=== PATIENT | male | born 1960 | race Caucasian/White ===

== ENCOUNTER → 2016-04-05 | Outpatient (CLI) | payer BC ==
[2016-04-05 17:49] LABS: EKG EKG PERFORMED
[2016-04-05 18:15] LABS: Anion Gap 10 mmol/L; Carbon Dioxide 28 mmol/L (22-30); Chloride 104 mmol/L (98-107); Sodium 142 mmol/L (137-145)
[2016-04-05 18:18] LABS: Basophils % (A) 0 %; CH 30.7; CHCM 33.6; Eosinophils # (A) 0.3 k/uL (0-0.7); Eosinophils % (A) 3 %; HDW 2.49; HGB 15.3 gm/dL (13.0-17.5); Luc % (Auto) 3; Lymphocytes # (A) 1.8 k/uL (1.0-4.8); Lymphocytes % (A) 19 %; MCH 29.9 pg (25.0-35.0); MCHC 32.6 g/dL (31.0-37.0); MCV 91.7 fL (80.0-100.0); Mean Platelet Volume 6.5; Monocytes # (A) 0.8 k/uL (0-1.0); Monocytes % (A) 9 %; Neutrophils # (A) 6.1 k/uL (1.3-7.7); Neutrophils % (A) 66 %; RBC 5.13 m/uL (4.30-5.90); WBC 9.3 k/uL (3.8-10.6); WBC (Perox) 9.74
== END | disposition home or self-care (01) ==
LOC: LABPAT 17:23
PROVIDERS: ATTEND Orthopaedic Surgery
DX: Z01.810 Encounter for preprocedural cardiovascular examination (principal); Z01.812 Encounter for preprocedural laboratory examination; M23.92 Unspecified internal derangement of left knee
CPT/HCPCS: 80051; 85025; 93005

== ENCOUNTER 2016-04-21 10:09 | Day surgery (SDC) | payer BC ==
[2016-04-18 15:41] VITALS: BMI 33.5
--- NOTE | 2016-04-20 18:00 | HP ---
Gavin Reyes is a 55-year-old patient seen with progressive left knee pain. After having treatment options discussed, he elected to proceed with left knee arthroscopy. Consent was obtained. His past medical history is hypothyroidism. Past surgical history is bilateral knee arthroscopy. Daily medications: Synthroid. Allergies are none. SOCIAL HISTORY: Patient denies tobacco use. PHYSICAL EVALUATION OF THE LEFT KNEE: His range of motion is 0 to 125 degrees. There is tenderness along the medial joint line. Positive medial Mendel's. Ligaments are stable. Hip rotation is without pain. Distal neurovascular exam is intact. Radiographs of the left knee revealed mild osteoarthritis. An MRI of the left knee revealed medial meniscal tear. IMPRESSION: Internal derangement left knee with medial meniscal tear. PLAN: Left knee arthroscopy with partial meniscectomy and debridement.
[~2016-04-21 10:09] MED LIST: DEXAMETHASONE SOD PHOSPHATE 10 MG/ML 1 ML VIAL IV ONE; HYDROmorphone 1 MG/ML 1 ML SYRINGE IVP PRN; MIDAZOLAM 2 MG/2 ML VIAL IV PRN; ONDANSETRON 4 MG/2 ML VIAL IVP ONE; ceFAZolin 2 GM in SODIUM CHLORIDE 0.9% 100 ML IVPB ONE
[2016-04-21] MEDS ORDERED: LIDOCAINE 1% 20 ML VIAL (10MG/ML) FOR IV START INTRADERMA ONE (10:30)
[2016-04-21] MEDS: LACTATED RINGERS 1,000 ML IV SCH ×2 (10:33→11:55)
[2016-04-21] MEDS ORDERED: NEOSTIGMINE 1 MG/ML 10 ML VIAL ONE (11:56)
[2016-04-21] MEDS ORDERED: GLYCOPYRROLATE 0.2 MG/ML 2 ML VIAL ONE (11:56)
[2016-04-21] MEDS ORDERED: fentaNYL (PF) 50 MCG/ML 2 ML AMP ONE (11:56)
[2016-04-21] MEDS ORDERED: ROCURONIUM BROMIDE 10 MG/ML 10 ML VIAL IV ONE (11:56)
[2016-04-21] MEDS ORDERED: ONDANSETRON 4 MG/2 ML VIAL ONE (11:56)
[2016-04-21] MEDS ORDERED: PROPOFOL 10 MG/ML 20 ML VIAL IV ONE (11:56)
[2016-04-21] MEDS ORDERED: SUCCINYLCHOLINE CHLORIDE VIAL 200 MG/10 ML VIAL IV ONE (11:56)
[2016-04-21] MEDS ORDERED: MIDAZOLAM 2 MG/2 ML VIAL ONE (11:56)
[2016-04-21] MEDS ORDERED: LIDOCAINE 1% INJ 10MG/ML (20 ML MDV) ONE (11:56)
[2016-04-21] MEDS ORDERED: BUPIVACAIN-EPI 0.25%-1:200,000 30 ML VIAL INTRAARTIC ONE ×2 (12:16→12:34)
--- NOTE | 2016-04-21 12:50 | P.OP ---
Date of Procedure: 04/21/16 Preoperative Diagnosis: Internal derangement left knee Postoperative Diagnosis: 1. Tear medial meniscus left knee 2. Grade 2/3 chondromalacia medial femoral condyle 3. Grade 2/3 chondromalacia patella left knee 4. Grade 2 chondromalacia lateral femoral condyle left knee 5. Reactive synovitis medial and suprapatellar compartments left knee Procedure(s) Performed: 1. Arthroscopic partial medial meniscectomy left knee 2. Arthroscopic chondroplasty medial femoral condyle left knee 3. Arthroscopic chondroplasty patella left knee 4. Arthroscopic partial synovectomy medial and suprapatellar compartments left knee Anesthesia: GETA Surgeon: Darío Fernandez Estimated Blood Loss (ml): 10 Pathology: none sent Condition: stable Disposition: PACU Indications for Procedure: 55-year-old patient seen with progressive left knee pain. After having options regarding treatment discussed, he elected to proceed with left knee arthroscopy. Operative Findings: See description of procedure Description of Procedure: Patient was taken to the operative suite. Patient underwent a general anesthetic by the department of anesthesia. Patient was given preoperative antibiotics. The left lower extremity was placed in a well-padded arthroscopic leg lee. The left leg was prepped and draped in the normal sterile orthopedic fashion. A lateral parapatellar and suprapatellar incision was made. Trochars were inserted. Arthroscopy was initiated. Suprapatellar pouch revealed thick reactive synovitis. The patellofemoral joint appeared to articulate congruently. There was grade 2/3 chondromalacia of the patella with some osteochondral tears present. The scope was guided into the medial gutter. No loose bodies or plica were identified. The scope was then guided into the medial compartment. A medial parapatellar incision was made. Trocar inserted followed by probe. There was a tear involving the posterior horn of the medial meniscus. There were grade 2-3 chondromalacia changes the medial femoral condyle with some osteochondral tears present. Thick reactive synovitis was noted anteriorly. A partial medial meniscectomy was performed on a stable tissue. I performed a chondroplasty of the medial femoral condyle down to stable tissue as well as a partial synovectomy. The residual meniscus was probed and found to be stable. Scope and probe were then guided into the intercondylar notch. Cruciates were identified, probed and found to be stable. The scope and probe were then guided into lateral compartment. There was grade 2 chondral malacia changes noted weightbearing surface lateral femoral condyle with no osteochondral tear present. The lateral meniscus was stable. There was no significant synovitis and there were no loose bodies. The scope was in guided back into the suprapatellar compartment. A motorized shaver was now introduced into the suprapatellar compartment. I debrided some piecemeal fragments of meniscus. I performed a chondroplasty of the patella down to stable tissue. I performed a partial synovectomy. The residual osteochondral surface was not probed and found to be stable. I took one more look around the entire knee, no residual debris. Instruments were now removed from the joint. The joint was infiltrated with .25% Marcaine. Steri-Strips were applied to the portal sites. Sterile dressings were applied. The patient was placed into a ALLI hose. No tourniquet was utilized. The patient was awakened, transferred to a bed and taken to recovery stable satisfactory condition.
[2016-04-21 12:52] VITALS: RESP 16; TEMP 97.1
[2016-04-21] MEDS ORDERED: METOCLOPRAMIDE 5 MG/ML 2 ML VIAL IVP ONE (13:00)
[2016-04-21] MEDS ORDERED: KETOROLAC 30 MG/ML 1 ML VIAL IVP ONE (13:07)
[2016-04-21] MEDS ORDERED: LACTATED RINGERS 1,000 ML IV ONE (13:31)
[2016-04-21] MEDS ORDERED: HYDROcodone/APAP 7.5-325MG 1 EACH TAB PO ONE (14:12)
[2016-04-21 14:13] VITALS: BP 108/72; PULSE 72
== END 2016-04-21 14:57 | disposition home or self-care (01) ==
LOC: OR 10:09
PROVIDERS: ATTEND Orthopaedic Surgery
DX: S83.242A Other tear of medial meniscus, current injury, left knee, initial encounter (principal); X58.XXXA Exposure to other specified factors, initial encounter; M22.42 Chondromalacia patellae, left knee; M94.262 Chondromalacia, left knee; M65.862 Other synovitis and tenosynovitis, left lower leg; E03.9 Hypothyroidism, unspecified; Z79.899 Other long term (current) drug therapy
CPT/HCPCS: 29881; J2250; J0330; J1100; J2710; J2765; J0690; J2405; J2001; J3010; J1885; J1170; J2704

== ENCOUNTER → 2021-03-25 | Outpatient (CLI) | payer BC ==
--- NOTE | 2021-03-25 15:51 | MR ---
EXAMINATION TYPE: MR knee LT wo con DATE OF EXAM: 03/25/2021 COMPARISON: MRI 03/19/2016 and outside radiographs 02/23/2021 HISTORY: 60-year-old male M25.562, Left inner and outer knee pain, pain behind knee, and knee locking for 1 year. History of left knee surgery TECHNIQUE: Multiplanar, multisequence imaging of the left knee is performed without IV contrast. FINDINGS: The ACL, PCL, MCL, LCL complex appear intact. Mild superficial irregularity of mid weightbearing articular cartilage in the medial compartment. There is new inner margin truncation of the body of the medial meniscus. Intermediate, obliquely orie nted signal extends within the posterior horn of the medial meniscus to the junction with the menisca l body at the site of previous tear noted in 2016. This could represent granulation tissue within a p revious tear defect. However, we do note a small but elongated 1.3 x 0.4 cm posterior para meniscal c yst, coronal image 28 and sagittal image 27. Focal 4 mm moderate thickness chondral defect along the posterior weightbearing aspect of the lateral tibial plateau is unchanged from prior. Lateral meniscus is intact. Superficial cartilage fraying along both medial and lateral patellar facets. Mild thinning of the art icular cartilage here compared to prior exam. Extensive metal susceptibility artifact along the anterior aspect of the knee. The technologist repor ts that the patient has some type of nonremovable pain along the anterior skin surface causing these artifacts. Thickening and intermediate signal of the proximal patellar tendon is unchanged suggesting proximal patellar tendinosis. Extensor mechanism otherwise appears intact. Small, physiologic joint effusion. Trace fluid in the deep infrapatellar bursa. There is a small, mil dly complex Marks's cyst measuring 4.4 x 1.6 cm, increased from prior and now containing a much large r loose body measuring 1.4 x 0.9 cm versus 1.1 x 0.5 cm, previously. Normal popliteal artery anatomy and muscle bulk. No suspicious bone marrow replacement. IMPRESSION: 1. New inner margin truncation to the body of the medial meniscus, likely interval partial meniscecto my. Clinically correlate. The previous posterior horn tear now shows intermediate signal intensity an d could represent healing granulation tissue. Recurrent tear difficult to exclude given the presence of a 1.3 x 0.4 cm posterior parameniscal cyst. 2. Similar 4 mm moderate thickness chondral defect along the posterior weightbearing aspect of the la teral tibial plateau. 3. Mild thinning of patellar articular cartilage slightly progressed from prior with similar superfic ial cartilage fissuring. 4. Continued proximal patellar tendinosis. 5. Small joint effusion and a small Marks's cyst measuring 4.4 cm and containing a 1.4 cm loose body.
== END | disposition home or self-care (01) ==
LOC: RADMRIMAIN 12:55
PROVIDERS: ATTEND Orthopaedic Surgery
DX: M71.22 Synovial cyst of popliteal space [Baker], left knee (principal); M23.42 Loose body in knee, left knee; M25.462 Effusion, left knee; M23.204 Derangement of unspecified medial meniscus due to old tear or injury, left knee

== ENCOUNTER → 2021-06-04 | Outpatient (CLI) | payer BC ==
[2021-06-04 18:17] LABS: Basophils # (A) 0.06 X 10*3/uL (0.00-0.10); Basophils % (A) 0.7 %; Eosinophils # (A) 0.28 X 10*3/uL (0.04-0.35); Eosinophils % (A) 3.1 %; HCT 47.4 % (39.6-50.0); HGB 15.7 g/dL (13.0-17.0); Immature Grans, Automated 0.2 %; Lymphocytes # (A) 2.69 X 10*3/uL (0.90-5.00); Lymphocytes % (A) 29.7 %; MCH 30.1 pg (27.0-32.0); MCHC 33.1 g/dL (32.0-37.0); MCV 90.8 fL (80.0-97.0); Mean Platelet Volume 10.1 fL (9.5-12.2); Monocytes # (A) 0.88 X 10*3/uL (0.20-1.00); Monocytes % (A) 9.7 %; NRBC Per 100 WBC 0 /100 WBCS (0.0-0.0); Neutrophils # (A) 5.12 X 10*3/uL (1.80-7.70); Neutrophils % (A) 56.6 %; Platelet Count 393 X 10*3/uL (140-440); RBC 5.22 X 10*6/uL (4.40-5.60); RDW 13.4 % (11.5-14.5); WBC 9.05 X 10*3/uL (4.50-10.00)
[2021-06-04 18:34] LABS: Anion Gap 12.1 mmol/L (10.00-18.00); Carbon Dioxide 22.9 mmol/L (20.0-27.5); Potassium 4.6 mmol/L (3.5-5.5)
== END | disposition home or self-care (01) ==
LOC: LABPAT 13:48
PROVIDERS: ATTEND Orthopaedic Surgery
DX: Z01.812 Encounter for preprocedural laboratory examination (principal); M23.92 Unspecified internal derangement of left knee
CPT/HCPCS: 36415; 80051; 85025

== ENCOUNTER 2021-06-10 09:21 | Day surgery (SDC) | payer BC ==
[2021-06-07 12:52] VITALS: BMI 36.9
--- NOTE | 2021-06-09 20:11 | HP ---
HISTORY AND PHYSICAL DATE OF SURGERY: 06/10/2021 Gavin Alejandra is a 60-year-old gentleman seen with progressive left knee pain. Options for treatment were discussed. He elected to proceed with left knee arthroscopy. Consent was obtained. PAST MEDICAL HISTORY: Hypothyroidism. PAST SURGICAL HISTORY: Right knee arthroscopy. DAILY MEDICATIONS: Synthroid. ALLERGIES: NONE. SOCIAL HISTORY: He denies tobacco use. PHYSICAL EVALUATION OF THE LEFT KNEE: Range of motion zero to 130 degrees. Mild effusion. Tenderness, medial joint line. Positive medial Mendel's. Ligaments stable. Hip rotation without pain. Distal neurovascular exam intact. Radiographs of the left knee revealed moderate medial compartment osteoarthritic changes. MRI left knee revealed a medial meniscal tear along with a perimeniscal cyst, Mraks cyst and loose body. IMPRESSION: 1. Internal derangement of left knee with medial meniscal tear and loose body. 2. Hypothyroidism. PLAN: Left knee arthroscopy with partial meniscectomy, removal of loose body and debridement. MMODL / IJN: [id number] /
[~2021-06-10 09:21] MED LIST changes: -DEXAMETHASONE SOD PHOSPHATE 10 MG/ML 1 ML VIAL IV ONE; +DEXAMETHASONE SOD PHOSPHATE 4 MG/ML 1 ML VIAL IV ONE; +HYDROmorphone 0.5 MG/0.5 ML SYRINGE IVP PRN; -HYDROmorphone 1 MG/ML 1 ML SYRINGE IVP PRN; +LIDOCAINE 1% (10MG/ML) FOR IV START INTRADERMA PRN; -ceFAZolin 2 GM in SODIUM CHLORIDE 0.9% 100 ML IVPB ONE; +ceFAZolin 3 GM in SODIUM CHLORIDE 0.9% 100 ML IVPB PRN; +fentaNYL (PF) 50 MCG/ML 2 ML AMP IV PRN
[2021-06-10] MEDS: LACTATED RINGERS 1,000 ML IV SCH ×2 (09:43→11:12)
[2021-06-10] MEDS ORDERED: HYDROmorphone (PF) 1 MG/ML ONE (11:08)
[2021-06-10] MEDS ORDERED: MIDAZOLAM 2 MG/2 ML VIAL ONE (11:08)
[2021-06-10] MEDS ORDERED: SUCCINYLCHOLINE CHLORIDE 100 MG/5 ML SYR IV ONE (11:08)
[2021-06-10] MEDS ORDERED: fentaNYL (PF) 50 MCG/ML 2 ML AMP ONE (11:08)
[2021-06-10] MEDS ORDERED: PROPOFOL 10 MG/ML 20 ML VIAL IV ONE (11:08)
[2021-06-10] MEDS ORDERED: LIDOCAINE 1% INJ 10MG/ML (20 ML MDV) ONE (11:08)
[2021-06-10] MEDS ORDERED: BUPIVACAINE (PF) 0.25% 30 ML VIAL SQ ONE (11:32)
[2021-06-10] MEDS ORDERED: LACTATED RINGERS 1,000 ML IV ONE (11:40)
--- NOTE | 2021-06-10 12:01 | P.OP ---
Date of Procedure: 06/10/21 Preoperative Diagnosis: Internal derangement left knee Postoperative Diagnosis: 1. Tear medial meniscus left knee 2. Reactive synovitis medial, lateral and suprapatellar compartments left knee Procedure(s) Performed: 1. Arthroscopic partial medial meniscectomy left knee 2. Arthroscopic partial synovectomy medial, lateral and suprapatellar compartments left knee Anesthesia: KAMERON, local Surgeon: Darío Fernandez Estimated Blood Loss (ml): 7 Pathology: none sent Condition: stable Disposition: PACU Indications for Procedure: 60-year-old patient seen with progressive left knee pain. After treatment options were discussed, he elected to proceed with arthroscopy. Operative Findings: see description of procedure Description of Procedure: Patient was taken to the operative suite. Patient underwent a general anestheti c by the department of anesthesia. Patient was given preoperative antibiotics. The left lower extremity was placed in a well-padded arthroscopic leg lee. The left leg was prepped and draped in the normal sterile orthopedic fashion. A lateral parapatellar and suprapatellar incision was made. Trochars were inserted. Arthroscopy was initiated. Suprapatellar pouch revealed diffuse thick reactive synovitis. The patellofemoral joint appeared to articulate congruently. There was grade 1/2 chondromalacia with no significant osteochondral tears present. The scope was guided into the medial gutter. No loose bodies or plica were identified. The scope was then guided into the medial compartment. A medial parapatellar incision was made. Trocar inserted followed by probe. There was a complex tear posterior horn medial meniscus. There was evidence of previous partial meniscectomy. The anterior horn was stable. There were grade 2 chondromalacia changes diffusely about the medial femoral condyle without significant osteochondral tearing noted. There was some thick reactive synovitis anteriorly. I performed a partial medial meniscectomy getting down to stable meniscal tissue. I performed a partial synovectomy decompressing the reactive synovitis anteriorly. The residual meniscus was probed and found to be stable. There was good decompression of synovitis. Scope and probe were then guided into the intercondylar notch. Cruciates were identified, probed and found to be stable. The scope and probe were then guided into lateral compartment. Lateral meniscus was probed and was found to be stable. There was no significant chondromalacia present in the lateral compartment. There was some thick reactive synovitis anteriorly involving the lateral compartment. I introduced a motorized shaver and I performed a partial synovectomy decompressing the reactive synovitis. Shaver was removed. There was good decompression of synovitis. The scope was in guided back into the suprapatellar compartment. I introduced a motorized shaver into the suprapatellar compartment. I debrided some piecemeal fragments of meniscus that I encountered. I performed a partial synovectomy. Shaver was now removed. There appeared to be good decompression of the synovitis. I now took one more look around the entire, no residual debris. Instruments were now removed from the joint. The joint was infiltrated with .25% Marcaine. Steri-Strips were applied to the portal sites. Sterile dressings were applied. The patient was placed into a ALLI hose. No tourniquet was utilized. The patient was awakened, transferred to a bed and taken to recovery stable satisfactory condition.
[2021-06-10 12:17] VITALS: TEMP 96.9
[2021-06-10] MEDS ORDERED: KETOROLAC 15 MG/ML 1 ML VIAL IVP ONE (12:42)
[2021-06-10 13:23] VITALS: RESP 20
[2021-06-10 14:25] VITALS: BP 128/70; PULSE 80
== END 2021-06-10 14:37 | disposition home or self-care (01) ==
LOC: OR 09:21
PROVIDERS: ATTEND Orthopaedic Surgery
DX: M23.204 Derangement of unspecified medial meniscus due to old tear or injury, left knee (principal); M65.862 Other synovitis and tenosynovitis, left lower leg; E03.9 Hypothyroidism, unspecified; Z79.890 Hormone replacement therapy; G43.909 Migraine, unspecified, not intractable, without status migrainosus; K21.9 Gastro-esophageal reflux disease without esophagitis; Z79.899 Other long term (current) drug therapy
CPT/HCPCS: 29881; 29876; J2250; J1100; J0690; J2405; J2001; J3010; J1170 ×2; J1885; J0330; J2704

== ENCOUNTER → 2022-03-23 | Outpatient (CLI) | payer BC ==
--- NOTE | 2022-03-24 04:55 | MR ---
EXAMINATION TYPE: MR knee RT wo con DATE OF EXAM: 03/23/2022 COMPARISON: Prior MRI right knee September 18, 2013 HISTORY: Right knee pain and swelling x 6 mos, no trauma. History of prior surgery. TECHNIQUE: Multiplanar, multisequence images of the knee is performed without IV contrast. FINDINGS: MEDIAL MENISCUS: Truncated appearance to posterior horn consistent with interval partial meniscectomy changes. Some fraying and increased signal in the remnant horn is present. LATERAL MENISCUS: Increase horizontal signal anterior horn lateral meniscus does not extend to articu lar surface seen best on coronal images. CRUCIATE LIGAMENTS: The anterior and posterior cruciate ligaments are intact and unremarkable. COLLATERAL LIGAMENTS: The medial collateral ligament and lateral collateral ligament complex are inta ct and unremarkable. EXTENSOR MECHANISM: Visualized quadriceps and patellar tendons are intact. Disruption of Hoffa's fat pad consistent with prior laparoscopic surgery. EFFUSION: No significant suprapatellar joint effusion. POPLITEAL CYST: Stable small size popliteal/barry cyst. TRICOMPARTMENT SPACES: Mild to moderate tricompartment joint space loss without significant spurring redemonstrated. CARTILAGE: Tricompartment joint space loss fairly mild but becoming more moderate in the medial tibio femoral compartment. BONE MARROW SIGNAL: No focal abnormal marrow signal is appreciated. OTHER: No additional significant abnormality is appreciated. IMPRESSION: 1. Interval surgery, some recurrent tearing of the remnant posterior horn medial meniscus is suspecte d. Suspect new intrasubstance tear anterior horn lateral meniscus. No full thickness tear at this lev el clearly seen. 2. Tricompartment degenerative changes as detailed above presumed on the basis of osteoarthritis. Ashvin e interval worsening from 2014 MRI noted.
== END ==
LOC: RADMRIMAIN 19:15
PROVIDERS: ATTEND Orthopaedic Surgery
DX: M17.11 Unilateral primary osteoarthritis, right knee (principal)

== ENCOUNTER → 2022-06-13 | Outpatient (CLI) | payer BC ==
[2022-06-13 22:25] LABS: Basophils # (A) 0.05 X 10*3/uL (0.00-0.10); Basophils % (A) 0.5 %; Eosinophils # (A) 0.17 X 10*3/uL (0.04-0.35); Eosinophils % (A) 1.8 %; HCT 48.2 % (39.6-50.0); HGB 15.6 g/dL (13.0-17.0); Immature Grans, Automated 0.3 %; Lymphocytes # (A) 2.25 X 10*3/uL (0.90-5.00); Lymphocytes % (A) 23.5 %; MCH 29.7 pg (27.0-32.0); MCHC 32.4 g/dL (32.0-37.0); MCV 91.8 fL (80.0-97.0); Mean Platelet Volume 9.8 fL (9.5-12.2); Monocytes # (A) 0.79 X 10*3/uL (0.20-1.00); Monocytes % (A) 8.3 %; NRBC Per 100 WBC 0 /100 WBCS (0.0-0.0); Neutrophils # (A) 6.27 X 10*3/uL (1.80-7.70); Neutrophils % (A) 65.6 %; Platelet Count 366 X 10*3/uL (140-440); RBC 5.25 X 10*6/uL (4.40-5.60); RDW 13.7 % (11.5-14.5); WBC 9.56 X 10*3/uL (4.50-10.00)
[2022-06-13 22:48] LABS: Anion Gap 12.6 mmol/L (10.00-18.00); Carbon Dioxide 25.4 mmol/L (20.0-27.5); Potassium 4.3 mmol/L (3.5-5.5)
== END | disposition home or self-care (01) ==
LOC: LABPAT 14:04
PROVIDERS: ATTEND Orthopaedic Surgery
DX: Z01.818 Encounter for other preprocedural examination (principal); I45.10 Unspecified right bundle-branch block; I23.2 Ventricular septal defect as current complication following acute myocardial infarction; M23.91 Unspecified internal derangement of right knee; R94.31 Abnormal electrocardiogram [ECG] [EKG]
CPT/HCPCS: 80051; 85025; 93005

== ENCOUNTER 2022-06-16 11:33 | Day surgery (SDC) | payer BC ==
--- NOTE | 2022-06-15 23:05 | HP ---
HISTORY AND PHYSICAL DATE OF SURGERY: 06/16/2022 HISTORY OF PRESENT ILLNESS: Gavin Reyes is a 61-year-old gentleman seen with progressive right knee pain. We discussed options for treatment. He elected to proceed with right knee arthroscopy. Consent regarding the procedure was obtained. PAST MEDICAL HISTORY: Hypothyroidism. PAST SURGICAL HISTORY: Knee arthroscopy. DAILY MEDICATION: Synthroid. ALLERGIES: None. SOCIAL HISTORY: Denies tobacco use. PHYSICAL EVALUATION OF RIGHT KNEE: Range of motion 0 to 130 degrees. Mild effusion. Tenderness to medial joint line. Positive medial Mendel's. Ligaments stable. Hip rotation without pain. Distal neurovascular exam is intact. RADIOGRAPHS: Right knee radiographs reveals some moderate osteoarthritic changes. MRI right knee revealed medial and lateral meniscal tears. IMPRESSION: 1. Internal derangement of right knee with medial and lateral meniscal tears. 2. Hypothyroidism. PLAN: Right knee arthroscopy with partial medial/lateral meniscectomy and debridement. MMODL / CONCEPCIONN: [id number] /
[~2022-06-16 11:33] MED LIST changes: -HYDROmorphone 0.5 MG/0.5 ML SYRINGE IVP PRN; +LACTATED RINGERS 1,000 ML IV SCH; -MIDAZOLAM 2 MG/2 ML VIAL IV PRN; -ceFAZolin 3 GM in SODIUM CHLORIDE 0.9% 100 ML IVPB PRN; -fentaNYL (PF) 50 MCG/ML 2 ML AMP IV PRN
[2022-06-16] MEDS ORDERED: LACTATED RINGERS 1,000 ML IV ONE ×2 (12:04)
[2022-06-16] MEDS ORDERED: PROPOFOL 10 MG/ML 20 ML VIAL IV ONE (13:53)
[2022-06-16] MEDS ORDERED: LIDOCAINE 2% INJ 20 MG/ML (2 ML VIAL) ONE (13:53)
[2022-06-16] MEDS ORDERED: fentaNYL (PF) 50 MCG/ML 2 ML AMP ONE (13:53)
[2022-06-16] MEDS ORDERED: MIDAZOLAM 2 MG/2 ML VIAL ONE (13:53)
[2022-06-16] MEDS ORDERED: BUPIVACAINE (PF) 0.25% 30 ML VIAL SQ ONE ×2 (13:57→14:25)
[2022-06-16 14:37] VITALS: TEMP 97
--- NOTE | 2022-06-16 14:40 | P.OP ---
Date of Procedure: 06/16/22 Preoperative Diagnosis: Internal derangement right knee Postoperative Diagnosis: 1. Tear medial and lateral meniscus right knee 2. Grade 2 chondromalacia medial femoral condyle right knee 3. Grade 2 chondromalacia patella right knee 4. Reactive synovitis medial, lateral and suprapatellar compartments right knee Procedure(s) Performed: 1. Arthroscopic partial medial and lateral meniscectomy right knee 2. Arthroscopic chondroplasty medial femoral condyle right knee 3. Arthroscopic chondroplasty patella right knee 4. Arthroscopic partial synovectomy medial, lateral and suprapatellar compartments right knee Anesthesia: IVANA, local Surgeon: Darío Fernandez Estimated Blood Loss (ml): 7 Pathology: none sent Condition: stable Disposition: PACU Indications for Procedure: 61-year-old gentleman seen with progressive right knee pain. After treatment options discussed, he elected to proceed with arthroscopy. Operative Findings: see description of procedure Description of Procedure: Patient was taken to the operative suite. Patient underwent a general anesthetic by the department of anesthesia. Patient was given preoperative antibiotics. The right lower extremity was placed in a well-padded arthroscopic leg lee. The right leg was prepped and draped in the normal sterile orthopedic fashion. A lateral parapatellar and suprapatellar incision was made. Trochars were inserted. Arthroscopy was initiated. Suprapatellar pouch revealed diffuse thick reactive synovitis. The patellofemoral joint appeared articulate congruently. There was grade 2 chondromalacia of the patella with some osteochondral flap tears present. The scope was guided into the medial gutter. No loose bodies or plica were identified The scope was then guided into the medial compartment. A medial parapatellar incision was made. Trocar inserted followed by probe. There was a complex tear posterior horn medial meniscus. There were grade 2 chondromalacia changes of the medial femoral condyle with some osteochondral flap tears present. There was some thick reactive synovitis anteriorly. I performed a partial medial meniscectomy getting down to stable meniscal tissue. I performed a chondroplasty of the medial femoral condyle getting down to stable osteochondral tissue. I performed a partial synovectomy decompressing the reactive synovitis. The residual meniscus was probed and was found to be stable. There was good decompression of the synovitis. The residual osteochondral surface of the medial femoral condyle was stable. Scope and probe were then guided into the intercondylar notch. Cruciates were identified, probed and found to be stable. The scope and probe were then guided into lateral compartment. There was a radial tear involving the anterior horn and midbody's of the lateral meniscus. There was some thick reactive synovitis anteriorly. There was no significant chondromalacia present. I performed a partial lateral meniscectomy getting down to stable meniscal tissue. I performed a partial synovectomy decompressing reactive synovitis. The residual meniscus was stable. There was good decompression of the synovitis. The scope was in guided back into the suprapatellar compartment. I introduced a motorized shaver into the suprapatellar compartment. I debrided some piecemeal fragments of meniscus that I encountered. I performed a partial synovectomy. Shaver was now removed. There was good decompression of the synovitis. I took one more look around the entire knee, no residual debris. Instruments were now removed from the joint. The joint was infiltrated with .25% Marcaine. Steri-Strips were applied to the portal sites. Sterile dressings were applied. The patient was placed into a ALLI hose. No tourniquet was utilized. The patient was awakened, transferred to a bed and taken to recovery stable satisfactory condition.
[2022-06-16] MEDS: HYDROmorphone 0.5 MG/0.5 ML SYRINGE IVP PRN ×2 (15:00→15:13)
[2022-06-16 15:20] VITALS: RESP 16
[2022-06-16] MEDS ORDERED: HYDROcodone/APAP 5-325MG 1 EACH TAB ONE (15:47)
[2022-06-16 15:53] VITALS: PULSE 82
[2022-06-16 16:07] VITALS: BP 119/79
== END 2022-06-16 16:36 | disposition home or self-care (01) ==
LOC: OR 11:33
PROVIDERS: ATTEND Orthopaedic Surgery
DX: S83.231A Complex tear of medial meniscus, current injury, right knee, initial encounter (principal); S83.281A Other tear of lateral meniscus, current injury, right knee, initial encounter; X58.XXXA Exposure to other specified factors, initial encounter; M17.11 Unilateral primary osteoarthritis, right knee; M65.861 Other synovitis and tenosynovitis, right lower leg; Z79.890 Hormone replacement therapy; M94.261 Chondromalacia, right knee; E03.9 Hypothyroidism, unspecified; G47.33 Obstructive sleep apnea (adult) (pediatric); Z99.89 Dependence on other enabling machines and devices; G43.909 Migraine, unspecified, not intractable, without status migrainosus; H93.19 Tinnitus, unspecified ear; Z79.899 Other long term (current) drug therapy; Z98.890 Other specified postprocedural states
CPT/HCPCS: 29880; J2250; J0690; J2405; J3010; J2704; J1170; J2001

== ENCOUNTER → 2024-05-27 | Outpatient (CLI) | payer BC ==
--- NOTE | 2024-05-27 14:29 | MR ---
EXAMINATION TYPE: MR lumbar spine wo con DATE OF EXAM: 05/27/2024 COMPARISON: Lumbar spine x-ray May 20, 2024 HISTORY: Low back pain into rt leg TECHNIQUE: Multiplanar, multisequence imaging of the lumbar spine is performed without IV contrast. FINDINGS: Sagittal images of the lumbar spine show vertebral body heights to appear satisfactory. Sub tle grade 1 retrolisthesis L5 on S1. There is disc desiccation without significant disc space narrowi ng at L2-L3 level. There is disc desiccation with moderate disc space narrowing and vacuum disc pheno mazin and Modic type II endplate changes at the L5-S1 level. The conus medullaris is normal in posit ion and signal ending mid L1 level. Osseous hemangioma at L5 level is seen sagittal image 12. Axial images show and T12-L1 and L1-L2 levels to appear within normal limits. Axial images at L2-L3 level show mild broad disc bulge minimally effacing the anterior thecal sac. Axial images at L3-L4 and L4-L5 levels show mild facet arthropathy bilaterally. Spinal canal is prese rved. Bilateral neural foramina are patent. Axial images at L5-S1 level shows spondylolisthesis with mild to moderate broad disc bulge and mild f acet arthropathy bilaterally. Spinal canal is preserved. There is mild to moderate left greater than right bilateral neuroforaminal narrowing seen. Paraspinal muscle bulk is maintained. IMPRESSION: Multilevel degenerative change greatest at the lumbosacral junction as detailed above. No suspicious eccentric disc herniation is seen to account for patient's right-sided radiculopathy type symptoms however. [facility], , 05/27/2024 2:26 PM
== END | disposition home or self-care (01) ==
LOC: RADMRIMAIN 12:54
PROVIDERS: ATTEND Orthopaedic Surgery
DX: M47.26 Other spondylosis with radiculopathy, lumbar region (principal); M43.16 Spondylolisthesis, lumbar region; M51.16 Intervertebral disc disorders with radiculopathy, lumbar region; M62.81 Muscle weakness (generalized)
CPT/HCPCS: 72148

== ENCOUNTER → 2024-06-17 | Outpatient (CLI) | payer BC ==
--- NOTE | 2024-06-17 14:31 | CT ---
EXAMINATION TYPE: CT pelvis wo/w con CT DLP: 2663.9 mGycm, Automated exposure control for dose reduction was used. DATE OF EXAM: 06/17/2024 2:13 PM COMPARISON: MRI lumbar spine 05/27/2024 CLINICAL INDICATION:Male, 63 years old with history of RECTAL PAIN K62.89; rectal pain TECHNIQUE: Standard CT of the pelvis before and after the uneventful administration of 100 mL Isovu e 300 intravenously. Enteric contrast was administered. Coronal and sagittal reformats were performed . FINDINGS: BLADDER: Underdistended urinary bladder with circumferential wall thickening measuring up to 1 cm. No surrounding fat stranding. The visualized bilateral distal ureters appear unremarkable and are contr ast-filled and delayed phase. The urinary bladder demonstrates internal contrast on delayed phase. REPRODUCTIVE: Prostate is enlarged in size measuring 5.6 cm in transverse dimension. BOWEL: Enteric contrast reaches the rectum. No focal bowel wall thickening or surrounding inflammator y changes. Distal colonic diverticulosis without evidence for acute diverticulitis. The appendix is u nremarkable. No evidence of bowel obstruction. PERITONEUM: No evidence of pneumoperitoneum or free fluid. VASCULATURE: No visualized aneurysm. Couple pelvic phleboliths. MUSCULOSKELETAL: No acute osseous abnormalities. Mild degenerative changes of bilateral SI joints. Mu ltilevel degenerative disc disease of the visualized lower lumbar spine. LYMPH NODES: No evidence for lymphadenopathy. SOFT TISSUE/ABDOMINAL WALL: Small fat filled umbilical hernia. Patulous fat filled left inguinal ring . No perirectal or perianal organized fluid collection or inflammatory changes. IMPRESSION: 1. Circumferential wall thickening of the underdistended urinary bladder without surrounding inflamm atory changes. This may relate to under distention versus cystitis. Correlate with urinalysis. 2. Colonic diverticulosis without evidence for acute diverticulitis. 3. Prostatomegaly. [facility], , 06/17/2024 2:29 PM
== END | disposition home or self-care (01) ==
LOC: RADCTMAIN 11:50
PROVIDERS: ATTEND Family Medicine
DX: K62.89 Other specified diseases of anus and rectum (principal); K57.30 Diverticulosis of large intestine without perforation or abscess without bleeding; N40.0 Benign prostatic hyperplasia without lower urinary tract symptoms; N32.89 Other specified disorders of bladder
CPT/HCPCS: 72194; Q9967

== ENCOUNTER → 2024-09-16 | Outpatient (CLI) | payer BC ==
--- NOTE | 2024-09-18 14:40 | MR ---
EXAMINATION TYPE: MR shoulder RT wo con DATE OF EXAM: 09/16/2024 10:55 AM COMPARISON: None. CLINICAL INDICATION: Male, 63 years old with history of M25.511 right shoulder pain, Right shoulder p ain and limited range of motion for 3 months. IV Contrast: cc (None if empty) TECHNIQUE: Multiplanar, multisequence imaging of the right shoulder is performed without contrast. FINDINGS: The glenohumeral joint is intact without significant degeneration or joint effusion. There is moderate osteoarthritis of the AC joint where there is hypertrophic spurring and mild fluid and capsular thickening. There is no shoulder. There is mild tendinosis of the supraspinatus tendon but there are no rotator cuff tears. There is no subacromial or subdeltoid bursitis. Biceps tendon is normal. A tear of the superior cartilaginous labrum is strongly suspected. IMPRESSION: 1. Mild tendinosis of the supraspinatus tendon without rotator cuff tear. 2. Moderate osteoarthritis of the AC joint but no significant shoulder impingement. 3. Probable SLAP injury of the cartilaginous labrum 4. No significant osteoarthritis of the glenohumeral joint. 5. No subacromial or subdeltoid bursitis [facility], , 09/18/2024 2:37 PM
== END | disposition home or self-care (01) ==
LOC: RADMRIMAIN 09:46
PROVIDERS: ATTEND Orthopaedic Surgery
DX: M19.011 Primary osteoarthritis, right shoulder (principal); M67.813 Other specified disorders of tendon, right shoulder